=== PATIENT | male | born 1990 | race Caucasian/White ===

== ENCOUNTER 2017-03-10 16:31 | Emergency (ER) | payer MEDICAID ==
[~2017-03-10] VITALS: Ht 165.1 cm; Wt 80.0 kg
[2017-03-10 16:34] VITALS: Ht 165.1 cm; Wt 80.0 kg
--- NOTE | 2017-03-10 18:30 | RADRPT ---
PROCEDURE: XR Chest. CLINICAL INDICATION: 26-year-old male with history of fall. TECHNIQUE: Single frontal view of the chest was obtained. COMPARISON: None FINDINGS: The soft tissues are normal. The bony elements are normal. The heart, cardiomediastinal silhouette and hilar structures are normal. The pulmonary vasculature is normal. There is a left-sided aorta. The lungs are clear. The costophrenic angles are normal. IMPRESSION: 1. Stable chest x-ray with no evidence of a pulmonary contusion, rib fracture, hemothorax or active cardiopulmonary disease. 2. A rib series can be performed for more detailed evaluation of the ribs if clinically indicated a s a chest x-ray may be insensitive in detecting a rib fracture. RPTAT:AAJJ Physician Christina Date Time Electronically viewed and signed by Physician Christina on 03/10/2017 18:30 MARSHA/
--- NOTE | 2017-03-10 20:39 | RADRPT ---
PROCEDURE: XR Left Ribs Series CLINICAL INDICATION: Pain TECHNIQUE: 2 oblique views of the left ribs were obtained. The images were reviewed on a PACS work station. BB markers had been placed over the sites of maximum pain. COMPARISON: None. FINDINGS: Osseous structures: The left ribs appear intact with no fracture or destructive process evident. Lung wilcox: The lung wilcox are clear. Pleural spaces: No pneumothorax or pleural fluid accumulation is evident. Soft Tissues: Appear unremarkable. IMPRESSION: Unremarkable Left rib series. Physician Phill Date Time Electronically viewed and signed by Libia Pulido Physician on 03/10/2017 20:38 /
[2017-03-10] MEDS ORDERED: IBUP-1542 PO (20:45)
[2017-03-10 20:55] VITALS: BP 120/61; PULSE 58; RESP 20; TEMP 98.3
--- NOTE | 2017-03-11 00:51 | ERD ---
ER Documentation Chief Complaint Date/Time DATE: 03/11/17 TIME: 00:47 Chief Complaint fell 2 days ago. hit bath tub , has left rib cage pain HPI 26-year-old male presents emergency department complaining of left-sided chest wall pain from a ground level that occurred two days prior to being seen. Patient fell in the bathtub and his his left side. He states the pain is moderate, achy and painful with deep inspiration. Patient denies taking any medications. ROS All systems reviewed and are negative except as per history of present illness. Medications Home Meds Active Scripts Ibuprofen* (Motrin*) 600 Mg Tab, 600 MG PO Q6H Y for PAIN AND OR ELEVATED TEMP, #30 TAB Prov:HENRY VACA PA-C 03/10/17 Allergies Allergies: Coded Allergies: No Known Allergy (Unverified , 03/10/17) PMhx/Soc Medical and Surgical Hx: pt denies Medical Hx, pt denies Surgical Hx History of Surgery: No Anesthesia Reaction: No Hx Neurological Disorder: No Hx Respiratory Disorders: No Hx Cardiac Disorders: No Hx Psychiatric Problems: No Hx Miscellaneous Medical Probl: No Hx Alcohol Use: No Hx Substance Use: No Hx Tobacco Use: No Smoking Status: Never smoker Physical Exam Vitals Vital Signs Date Time Temp Pulse Resp B/P Pulse Ox O2 Delivery O2 Flow Rate FiO2 03/10/17 20:55 98.3 58 20 120/61 99 Room Air 03/10/17 16:34 98.1 66 18 122/63 99 Physical Exam Const: WD/WN Head: Atraumatic Eyes: Normal Conjunctiva ENT: Normal External Ears, Nose and Mouth. Neck: Full range of motion..~ No meningismus. Resp: Clear to auscultation bilaterally TTP on the left side of chest Cardio: Regular rate and rhythm, no murmurs Abd: Soft, non tender, non distended. Normal bowel sounds Skin: No petechiae or rashes Back: No midline or flank tenderness Ext: No cyanosis, or edema Neur: Awake and alert Psych: Normal Mood and Affect Procedures/MDM This is a 26-year-old male presenting to the emergency department complaining of left-sided chest wall tenderness from a ground-level fall that occurred a couple days prior to being seen likely strain and contusion. There is no evidence of any rib fractures, pneumothorax, pleural effusion or cardiac contusion. Patient appears well, he has stable vital signs. X-rays of the left ribs and chest x-ray were done did not show any evidence of any fractures, pneumothorax, pleural effusion. Patient stable to be discharged home with prescription for ibuprofen. Discussed return to the ER for any worsening signs or symptoms she agrees and understands the plan Departure Diagnosis: Primary Impression: Acute costochondritis Condition: Stable Patient Instructions: Chest Wall Contusion, Chest Wall Pain, Costochondritis Additional Instructions: Visite a clements eduardo franco para un EXAMEN.Regrese a estas instalaciones si no se mejora ember esperbamos o ember le dijimos. Davison toda la medicina kely y ember se le indic. Davison toda la medicina kely y ember se le indic. HENRY VACA PA-C Mar 11, 2017 00:51
== END 2017-03-10 20:55 | disposition home or self-care (01) ==
LOC: FTE 16:31
DX: M94.0 Chondrocostal junction syndrome [Tietze] (principal)
CPT/HCPCS: 71010; 71100